=== PATIENT | female | born 1980 | race Caucasian/White ===

== ENCOUNTER 2023-05-08 11:26 | Inpatient (IN) ==
--- NOTE | 2023-04-14 11:51 | PAT Medication Instructions ---
Medication Instructions Date of Service April 14, 2023 Home Medications amitriptyline 50 mg tablet 50 mg PO HS carvedilol 6.25 mg tablet 6.25 mg PO BID cyclobenzaprine 10 mg tablet 10 mg PO TID PRN Pain desvenlafaxine succinate 50 mg tablet,extended release 24 hr (Pristiq) 50 mg PO QAM ergocalciferol (vitamin D2) 1,250 mcg (50,000 unit) capsule (Vitamin D2) 1,250 mcg PO WK ferrous sulfate 325 mg (65 mg iron) tablet (iron) 325 mg PO QPM hydroxyzine pamoate 25 mg capsule (Vistaril) 25 mg PO TID PRN Anxiety liothyronine 5 mcg tablet 10 mcg PO QAM lithium carbonate 150 mg capsule 150 mg PO QAM lithium carbonate 450 mg tablet,extended release 450 mg PO BID riboflavin (vitamin B2) 100 mg tablet (Vitamin B-2) 100 mg PO QAM sertraline 100 mg tablet 100 mg PO HS vitamin E 800 unit capsule 800 mg PO BID MEDICATION INSTRUCTIONS: STOP taking 2 weeks before surgery vitamin E 800 unit capsule 800 mg PO BID DO NOT take the morning of surgery ergocalciferol (vitamin D2) 1,250 mcg (50,000 unit) capsule (Vitamin D2) 1,250 mcg PO WK cyclobenzaprine 10 mg tablet 10 mg PO TID PRN Pain hydroxyzine pamoate 25 mg capsule (Vistaril) 25 mg PO TID PRN Anxiety riboflavin (vitamin B2) 100 mg tablet (Vitamin B-2) 100 mg PO QAM Take morning of surgery With a small sip of water, OTHERWISE NOTHING TO EAT OR DRINK AFTER MIDNIGHT: lithium carbonate 450 mg tablet,extended release 450 mg PO BID carvedilol 6.25 mg tablet 6.25 mg PO BID liothyronine 5 mcg tablet 10 mcg PO QAM lithium carbonate 150 mg capsule 150 mg PO QAM desvenlafaxine succinate 50 mg tablet,extended release 24 hr (Pristiq) 50 mg PO QAM Take evening before surgery lithium carbonate 450 mg tablet,extended release 450 mg PO BID carvedilol 6.25 mg tablet 6.25 mg PO BID ferrous sulfate 325 mg (65 mg iron) tablet (iron) 325 mg PO QPM cyclobenzaprine 10 mg tablet 10 mg PO TID PRN Pain (if needed) hydroxyzine pamoate 25 mg capsule (Vistaril) 25 mg PO TID PRN Anxiety (if needed) sertraline 100 mg tablet 100 mg PO HS Other Notes CHECK WITH PRESCRIBING PROVIDER FOR INSTRUCTIONS: amitriptyline 50 mg tablet 50 mg PO HS If you have any questions please call us at [phone] or [phone] or [phone] or [phone]
--- NOTE | 2023-04-24 11:10 | Anesthesiology Consultation ---
Date of Service April 24, 2023 Assessment & Plan (1) Encounter for pre-operative examination: Chart Review Chart Review: Acceptable Risk for Surgery (pending PCP clearance scheduled 04/27/23) and Patient seen in Pre Admission Testing - Awaiting PCP clearance 04/27/23 (Shannan Manning PA-C) - Check test AM DOS Per PAT appt on 04/24/23, patient returned from [place] 04/16/23. Pt is vaccin ated for Covid. Will leave to surgeon's discretion if preop Covid testing needed . Educated on importance of using Covid precautions one week prior to surgery Teaching & Discussion Pre-Anesthesia Teaching/Discussion Notes: Instructed NPO after midnight before surgery,except medications with 15 cc of water. Medication instructions provided according to the [facility] guidelines. History Surgery Operation Date: 05/08/23 07:45 Proposed Procedures p L4-L5 Decompression and Fusion, Spinal Cord Monitoring - Amauri Ramirez, DO Height/Weight Height: 5 ft 1.5 in Weight: 65.8 kg Allergies Allergy/AdvReac Type Severity Reaction Status Date / Time cefaclor [From [facility]] Allergy Intermediate Hives Verified 04/14/23 11:11 Medications Home Medications Medication Instructions Recorded Confirmed Last Taken amitriptyline 50 mg tablet 50 mg PO HS 04/14/23 04/14/23 Unknown carvedilol 6.25 mg tablet 6.25 mg PO BID 04/14/23 04/14/23 Unknown cyclobenzaprine 10 mg tablet 10 mg PO TID PRN Pain 04/14/23 04/14/23 Unknown desvenlafaxine succinate 50 mg 50 mg PO QAM 04/14/23 04/14/23 Unknown tablet,extended release 24 hr (Pristiq) ergocalciferol (vitamin D2) 1,250 1,250 mcg PO WK 04/14/23 04/14/23 Unknown mcg (50,000 unit) capsule (Vitamin D2) ferrous sulfate 325 mg (65 mg 325 mg PO QPM 04/14/23 04/14/23 Unknown iron) tablet (iron) hydroxyzine pamoate 25 mg capsule 25 mg PO TID PRN Anxiety 04/14/23 04/14/23 Unknown (Vistaril) liothyronine 5 mcg tablet 10 mcg PO QAM 04/14/23 04/14/23 Unknown lithium carbonate 150 mg capsule 150 mg PO QAM 04/14/23 04/14/23 Unknown lithium carbonate 450 mg 450 mg PO BID 04/14/23 04/14/23 Unknown tablet,extended release quetiapine 400 mg tablet (Seroquel) 400 mg PO QPM 04/14/23 04/14/23 Unknown riboflavin (vitamin B2) 100 mg 100 mg PO QAM 04/14/23 04/14/23 Unknown tablet (Vitamin B-2) sertraline 100 mg tablet 100 mg PO HS 04/14/23 04/14/23 Unknown vitamin E 800 unit capsule 800 mg PO BID 04/14/23 04/14/23 Unknown Past Medical History Medical History ADHD Stable Anxiety and depression Bipolar disorder stable Degenerative disc disease History of COVID-06 Mar 2022>resolved History of kidney stones no surgery required- no recent issues Hypertension Hypothyroidism Iron deficiency on supplement Migraine PTSD (post-traumatic stress disorder) Tardive dyskinesia stable with Vitamin E Exercise / Class Metabolic Activity II 4-5 Yardwork/Stairs/Walk up hill (one flight of stairs - no chest pain or SOB ) Past Family History Family History Other No family history of adverse response to anesthesia Past Surgical History Surgical History H/O foot surgery left (x 2) History of carpal tunnel release rt/left History of section x 3 History of colonoscopy History of decompression of ulnar nerve rt/left History of nasal surgery s/p nasal fracture [place] teeth removed Past Anesthesia History No Hx of Anesthesia Complications and No Family Hx of Anesthesia Complications History of PONV No Hx of PONV and No Hx of Motion Sickness Social History Smoking Status: Never smoker Hx Alcohol Use: Yes Alcohol type: beer, wine and hard liquor alcohol intake frequency: a few times a month substance use type: does not use Review of Systems Reflux- occ at night- relieved with Tums (feels from iron supplement) Blood transfusion s/p childbirth (years ago) Patient denies chest pain, shortness of breath, dyspnea on exertion, cough, wheezing, palpitations. No hx of seizures, stroke, RI, apnea/snoring. No hx of blood clots Physical Exam Vital Signs VITALS BP 117/78 P 67 TEMP 98.2 SP02 98% RESP 16 Constitutional no acute distress ENMT Mouth: no TMJ clicking Thyromental Distance: < 3.5 Finger Breadths (3.0) Mallampati Class: I (smaller airway) Cap to molar Neck + limited neck extension Respiratory normal respiratory effort; no respiratory distress Auscultation: lungs clear to auscultation bilaterally; no wheezes Cardiovascular Rate/Rhythm: regular rate and regular rhythm Heart Sounds: no murmur Vessels: no carotid bruit Musculoskeletal Spine: no pain with cervical ROM Extremities: extremities normal to inspection Psychiatric Orientation: alert Lab Results Anesthesia Preop Results Results Anesthesia Widget: WBC 6.98 K/ul (4.8-10.8) 04/24/23 Hgb 13.1 g/dl (12.0-16.0) 04/24/23 Hct 39.3 % (37.0-47.0) 04/24/23 Plt 240 K/uL (130-400) 04/24/23 Na 137 mmol/L (136-145) 04/24/23 K 4.6 mmol/L (3.5-5.1) 04/24/23 Cl 107 mmol/L (98-107) 04/24/23 CO2 28 mmol/L (21-32) 04/24/23 BUN 11 mg/dl (6-23) 04/24/23 Creat 0.86 mg/dl (0.6-1.2) 04/24/23 Glucose Level 86 mg/dl (70-99(Fasting)) 04/24/23 PT 10.3 Seconds (9.0-12.0) 04/24/23 PTT 24.1 Seconds (21.0-31.0) 04/24/23 INR 0.9 (0.9-1.1) 04/24/23 Urine Color Yellow 04/24/23 Urine Appearance Cloudy (Clear) A 04/24/23 Urine pH 8.0 (4.5-7.5) H 04/24/23 Urine Specific [place] 1.016 (1.000-1.030) 04/24/23 Urine Protein Negative (Negative) 04/24/23 Urine Glucose (UA) Negative (Negative) 04/24/23 Urine Ketones Negative (Negative) 04/24/23 Urine Blood Negative (Negative) 04/24/23 Urine Nitrite Positive (Negative) A 04/24/23 Urine Bilirubin Negative (Negative) 04/24/23 Urine Urobilinogen Negative (Negative) 04/24/23 Urine Leukocyte Esterase Trace (Negative) H 04/24/23 Urine WBC (Auto) 10-30 /hpf (0-5) H 04/24/23 Urine RBC (Auto) 0-4 /hpf (0-4) 04/24/23 Urine Hyaline Casts (Auto) 1-5 /lpf (0-5) 04/24/23 Urine Epithelial Cells (Auto) >30 /lpf (0-5) H 04/24/23 Urine Bacteria (Auto) 4+ (Negative) H 04/24/23 Blood Type O Negative 04/24/23 Antibody Screen NEGATIVE 04/24/23 Testing Laboratory Results Surgeon's office informed of abnormal UA results 04/24/23= URINE CULTURE: E coli >100,00 CFU/ml Electrocardiogram Date: 04/24/23 Findings: + NSR @ (63bpm ) Normal EKG per cardio Chest X-Ray Date: 04/24/23 Findings: + NAD COVID-19 Risk Screen Screening Information COVID-19 Screen Date: 04/24/23 Exposure 21 Days Family/Household +COVID Last 21 Days: No Exposure 10 Days Any COVID Exposure Last 10 Days: No Symptoms Last 10 Days Experienced COVID Sx Last 10 Days: No + COVID 0-90 Days COVID + in Last 0-90 Days: No Risk Plan COVID Risk Plan: No Risk Identified Patient Education COVID Preop Screening Education Complete: Yes
--- NOTE | 2023-05-08 11:18 | History & Physical Bridge Note ---
Date of Service May 08, 2023 History & Physical Bridge Note I have examined the patient, reviewed the History & Physical and in the interval since the performance of the History & Physical I have noted the following changes of clinical significance: no changes noted
--- NOTE | 2023-05-08 11:19 | History & Physical Report ---
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 After failing course of nonoperative care she is here for surgical intervention. Allergies Allergy/AdvReac Type Severity Reaction Status Date / Time cefaclor [From [facility]] Allergy Intermediate Hives Verified 04/14/23 11:11 Home Medications Medication Instructions Recorded Confirmed Type amitriptyline 50 mg tablet 50 mg PO HS 04/14/23 04/14/23 History carvedilol 6.25 mg tablet 6.25 mg PO BID 04/14/23 04/14/23 History cyclobenzaprine 10 mg tablet 10 mg PO TID PRN Pain 04/14/23 04/14/23 History desvenlafaxine succinate 50 mg 50 mg PO QAM 04/14/23 04/14/23 History tablet,extended release 24 hr (Pristiq) ergocalciferol (vitamin D2) 1,250 1,250 mcg PO WK 04/14/23 04/14/23 History mcg (50,000 unit) capsule (Vitamin D2) ferrous sulfate 325 mg (65 mg 325 mg PO QPM 04/14/23 04/14/23 History iron) tablet (iron) hydroxyzine pamoate 25 mg capsule 25 mg PO TID PRN Anxiety 04/14/23 04/14/23 History (Vistaril) liothyronine 5 mcg tablet 10 mcg PO QAM 04/14/23 04/14/23 History lithium carbonate 150 mg capsule 150 mg PO QAM 04/14/23 04/14/23 History lithium carbonate 450 mg 450 mg PO BID 04/14/23 04/14/23 History tablet,extended release quetiapine 400 mg tablet (Seroquel) 400 mg PO QPM 04/14/23 04/14/23 History riboflavin (vitamin B2) 100 mg 100 mg PO QAM 04/14/23 04/14/23 History tablet (Vitamin B-2) sertraline 100 mg tablet 100 mg PO HS 04/14/23 04/14/23 History vitamin E 800 unit capsule 800 mg PO BID 04/14/23 04/14/23 History Past Med/Surg History Medical History ADHD Stable Anxiety and depression Bipolar disorder stable Degenerative disc disease History of COVID-06 Mar 2022>resolved History of kidney stones no surgery required- no recent issues Hypertension Hypothyroidism Iron deficiency on supplement Migraine PTSD (post-traumatic stress disorder) Tardive dyskinesia stable with Vitamin E Surgical History H/O foot surgery left (x 2) History of carpal tunnel release rt/left History of section x 3 History of colonoscopy History of decompression of ulnar nerve rt/left History of nasal surgery s/p nasal fracture [place] teeth removed Family History Other No family history of adverse response to anesthesia Social History Smoking Status: Never smoker Second Hand Exposure: No; Hx Alcohol Use: Yes Alcohol type: beer, wine and hard liquor Preferred Language: Georgian 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
[~2023-05-08 11:26] MED LIST: ACETAMINOPHEN 500 MG TAB PO SCH; CLINDAMYCIN/D5W 900 MG/50 ML BAG IV SCH; CeleBREX 200 MG CAP PO SCH; GABAPENTIN 900 MG DOSE PO SCH; LR 15ML/HR IV SCH
[2023-05-08] MEDS ORDERED: BUPIVACAINE/EPINEPHRINE 0.25% 1:200,000 30 ML VIAL ONE (11:30)
[2023-05-08] MEDS ORDERED: ceFAZolin 330 MG/ML 1 GM VIAL ONE (11:30)
[2023-05-08] MEDS ORDERED: DEXAMETHASONE SOD INJ 4 MG/ML VIAL ONE (11:37)
[2023-05-08] MEDS ORDERED: MIDAZOLAM HCL 1 MG/ML 2ML VIAL ONE (11:37)
[2023-05-08] MEDS ORDERED: ONDANSETRON INJ 2 MG/ML 2 ML VIAL ONE (11:37)
[2023-05-08] MEDS ORDERED: fentaNYL citrate PF 100 MCG/2 ML VIAL ONE (11:37)
[2023-05-08] MEDS ORDERED: LIDOCAINE 2% 2 ML VIAL/AMP(20MG/ML) INFIL ONE (11:37)
[2023-05-08] MEDS ORDERED: PROPOFOL IV EMULSION 10 MG/ML 20 ML VIAL IV ONE (11:37)
[2023-05-08] MEDS ORDERED: ePHEDrine sulfate 50 MG/ML AMP IV PRN (12:22)
[2023-05-08] MEDS ORDERED: ONDANSETRON INJ 2 MG/ML 2 ML VIAL IV PRN ×2 (12:22→15:36)
[2023-05-08] MEDS ORDERED: ATROPINE SULFATE 0.1 MG/ML 10ML SYR IV PRN (12:22)
[2023-05-08] MEDS ORDERED: ROCURONIUM BROMIDE 10 MG/ML 5 ML VIAL IV ONE (12:53)
[2023-05-08] MEDS ORDERED: SUGAMMADEX SODIUM 200 MG/2 ML VIAL IV ONE (12:53)
[2023-05-08] MEDS ORDERED: FLOSEAL HEMOSTATIC MATRIX 10ML TOP ONE (13:04)
--- NOTE | 2023-05-08 13:59 | Operative Report ---
Post Operative Report Pre & Post Diagnosis Operation Date: 05/08/23 12:55 Pre-Op Diagnosis: Lumbar spinal stenosis Lumbar spondylolisthesis L4-L5 Post-Op Diagnosis: Same I identified the patient and participated in the time-out.: Yes Procedure Operation Date: 05/08/23 12:55 Actual Procedures 1. Lumbar decompression bilaterally facetectomies and foraminotomies L3-L4 L4-5 #2 posterior spinal fusion L4-5 per #3 placed posterior instrumentation L4-5. #4 interbody fusion L4-5. #5 placement Spira 13 x 26 mm at L4-5 per #6 placement locally harvested morselized autograft in the posterior gutters. #7 placement of I factor combined with V toss in the interbody space and posterior gutters. Surgeon Amauri Ramirez, Laser/Electro Optics Technician Wayne Bowles Estimated Blood Loss 50 Findings Consistent with Post-Op Diagnosis Specimens none Indications This is a 42-year-old female who presents with chronic persistent back and leg pain after failing course of nonoperative care she is here for surgical intervention. Description of Procedure Patient was met with identified informed consent obtained. Patient was then taken to the operative suite underwent a patient placed in a prone position the Harper table top Nilay frame. All bony promises well-padded eyes inspected to ensure no external pressure placed upon the. This point lumbar spine was prepped and draped in a sterile fashion. Sharp dissection with the assistance of Bovie cautery to form down to and exposing the lamina transverse processes of L4-5. From a caudal cephalad fashion complete laminectomy of L4 partial and active L3 was performed including bilateral medial facetectomies and foraminotomies addressing severe spinal stenosis and neural compression. Pedicle screws were then placed in L4-L5 bilaterally with assistance of fluoroscopy and appropriate sized rosie placed. By way of transforaminal approach and left complete discectomy L4-5 was performed endplates guided to subcortically bone and a 13 x 26 mm Spira cage filled with I factor tapped in position. The rods then compressed locked into final position bilaterally. The transverse processes of L4-5 burred to subcortical bleeding bone. I factor amount of the test and locally harvested morselized allograft was then placed in the posterior gutters. 15 round LYUDMILA drain inserted. The incision was then closed with 1 Vicryl to fascia 2-0 Vicryl subcutaneously and 4 Monocryl for final skin closure. Steri-Strips sterile dressing placed. Patient waken taken to PACU stable condition. Please note spinal cord monitoring visualized at the procedure no changes noted. Lastly Wayne Bowles was present at the entire surgeon while the patient positioning complex portion of the surgery and final skin closure. I attest to the content of the Intraoperative Record and any orders documented therein. Any exceptions are noted below.
[2023-05-08] MEDS: fentaNYL citrate PF 100 MCG/2 ML VIAL IV PRN ×4 (14:35→14:50)
--- NOTE | 2023-05-08 14:46 | Fluoroscopy Report ---
INTRAOPERATIVE RADIOGRAPHS CLINICAL HISTORY: L4-L5 spinal fusion. Fluoro time: 21 seconds Ka,r: 16.25 mGy FINDINGS: 2 spot fluoroscopic views of the lumbar spine are presented. There has been discectomy at L 4-L5 with laminectomy and posterior fusion at this level. Interpedicular screws are in place. The ort hopedic hardware appears intact. IMPRESSION: Intraoperative images from lumbar spinal fusion surgery as above. Electronically signed by: Cruzito Sebastian M.D. 05/08/2023 2:45 PM
--- NOTE | 2023-05-08 15:00 | Anesthesiology Progress Note ---
Date of Service May 08, 2023 Anesthesia Post Procedure Vital Signs Vital Signs: Temp Pulse Resp BP BP Pulse Ox O2 Del Method 05/08/23 14:55 98.4 F 74 15 99/63 L 98 Nasal Cannula 05/08/23 14:45 68 15 110/72 96 Nasal Cannula 05/08/23 14:35 72 18 119/82 96 Room Air 05/08/23 14:25 74 20 118/75 100 Oxymask 05/08/23 14:16 96.8 F L 76 16 121/82 98 Oxymask 05/08/23 12:01 98.6 F 65 20 132/85 96 Room Air O2 Flow Rate 05/08/23 14:55 3 05/08/23 14:45 3 05/08/23 14:35 05/08/23 14:25 6 05/08/23 14:16 6 05/08/23 12:01 Pain Intensity Back: Pain Intensity: 5 Transfer of Care Handoff Completed per policy Notes Mental Status: alert / awake / arousable and participated in evaluation Patient Amnestic to Procedure: Yes Nausea / Vomiting: adequately controlled Pain: adequately controlled Airway Patency, RR, SpO2: stable & adequate BP & HR: stable & adequate Hydration State: stable & adequate Anesthetic Complications: no major complications apparent and Pt Satisfied with anesthetic care
[2023-05-08] MEDS ORDERED: diphenhydrAMINE Capsule 25 MG CAP PO PRN (15:36)
[2023-05-08] MEDS ORDERED: LORazepam 2 MG/1 ML VIAL IV PRN (15:36)
[2023-05-08] MEDS ORDERED: HYDROmorphone INJ 0.5 MG/0.5 ML SYR IV PRN (15:36)
[2023-05-08] MEDS ORDERED: FAMOTIDINE 20 MG TAB PO PRN (15:36)
[2023-05-08] MEDS ORDERED: MAGNESIUM HYDROXIDE SUSP 30 ML UDC PO PRN (15:36)
[2023-05-08] MEDS ORDERED: ALUMINUM/MAGNESIUM SUSP 30 ML UDC PO PRN (15:36)
[2023-05-08] MEDS ORDERED: LORazepam 0.5 MG TAB PO PRN (15:36)
[2023-05-08] MEDS ORDERED: METOCLOPRAMIDE HCL INJ 5 MG/ML 2 ML VIAL IV PRN (15:36)
[2023-05-08] MEDS ORDERED: HYDROmorphone INJ 1 MG/ML SYRINGE IV PRN (15:36)
[2023-05-08] MEDS ORDERED: bisacodyL 10 MG SUPP PR PRN (15:36)
[2023-05-08] MEDS ORDERED: DO NOT ADMINISTER FLU VACCINE PRN (15:36)
[2023-05-08] MEDS ORDERED: NALOXONE HCL 0.4 MG/1 ML VIAL/CARP IV PRN (15:36)
[2023-05-08] MEDS ORDERED: ONDANSETRON 4 MG OD TAB PO PRN (15:36)
[2023-05-08] MEDS ORDERED: DO NOT ADMINISTER PNEUMOCOCCAL VACCINE PRN (15:36)
[2023-05-08] MEDS ORDERED: traMADol HCL 50 MG TABLET PO PRN (15:36)
[2023-05-08] MEDS ORDERED: SOD PHOSPHATE/SOD BIPHOSPHATE ENEMA 132 ML BTL PR PRN (15:36)
[2023-05-08] MEDS ORDERED: PROMETHAZINE HCL 12.5 MG in SODIUM CHLORIDE 0.9% 50 ML IV PRN (15:36)
[2023-05-08] MEDS ORDERED: hydrOXYzine HCl 25 MG TAB PO PRN ×2 (15:36)
[2023-05-08] MEDS: LACTATED RINGER'S 1,000 ML IV SCH (16:11)
[2023-05-08] MEDS ORDERED: ACETAMINOPHEN 500 MG TAB PO PRN (20:00)
[2023-05-08] MEDS ORDERED: ACETAMINOPHEN 1,000 MG/100 ML VIAL IV PRN (20:00)
[2023-05-08] MEDS: CLINDAMYCIN/D5W 600 MG/50 ML BAG IV SCH (20:44)
[2023-05-08] MEDS: AMITRIPTYLINE HCL 50 MG TAB PO SCH (21:33)
[2023-05-08] MEDS: DOCUSATE SODIUM/SENNA 50/8.6MG TAB PO SCH (21:33)
[2023-05-08] MEDS: carvediloL 6.25 MG TAB PO SCH (21:33)
[2023-05-08] MEDS: LITHIUM CARBONATE 450 MG TABCR PO SCH (21:33)
[2023-05-08] MEDS: QUEtiapine FUMARATE 200 MG TAB PO SCH (21:34)
[2023-05-08] MEDS: FERROUS SULFATE 325 MG TAB PO SCH (21:34)
[2023-05-08] MEDS: oxyCODONE HCL IR 5 MG TAB (IMMEDIATE RELEASE) PO PRN (21:34)
[2023-05-08] MEDS: TOCOPHERYL, DL-ALPHA 400 UNITS 180 MG CAP PO SCH (21:34)
[2023-05-08] MEDS: SERTRALINE HCL 100 MG TABLET PO SCH (21:34)
[2023-05-09] MEDS: LACTATED RINGER'S 1,000 ML IV SCH (01:41)
[2023-05-09] MEDS: CLINDAMYCIN/D5W 600 MG/50 ML BAG IV SCH (04:59)
[2023-05-09] MEDS: oxyCODONE HCL IR 5 MG TAB (IMMEDIATE RELEASE) PO PRN ×3 (06:21→21:39)
[2023-05-09] MEDS: POLYETHYLENE (MIRALAX) 17 GM PACK PO SCH ×3 (06:21→18:29)
[2023-05-09] MEDS: LIOTHYRONINE SODIUM 5 MCG TAB PO SCH (06:22)
[2023-05-09 07:27] LABS: Basophils # (auto) 0.02 K/uL (0-0.2); Basophils % (auto) 0.2 %; Eosinophils # (auto) 0.03 K/uL (0-0.50); Eosinophils % (auto) 0.3 %; Hematocrit (blood only) 32.9 % (37.0-47.0); Immature Granulocytes # (auto) 0.06 K/uL (0.01-0.20); Immature Granulocytes % (auto) 0.6 %; Lymphocytes # (auto) 1.45 K/uL (1.2-3.4); Lymphocytes % (auto) 14.2 %; Mean Corpuscular Hemoglobin 29.8 pg (25.0-34.0); Mean Corpuscular Hgb Conc 33.4 g/dL (32.0-36.0); Mean Corpuscular Volume 89.2 fL (80.0-100.0); Mean Platelet Volume 10.2 fL (9.4-12.4); Monocytes # (auto) 0.82 K/uL (0.11-0.59); Neutrophils # (auto) 7.81 K/uL (1.40-6.50); Neutrophils % (auto) 76.7 %; Platelet Count 218 K/uL (130-400); RDW Coefficient of Variation 12.1 % (11.5-14.5); RDW Standard Deviation 39.2 fL (36.4-46.3); Red Blood Count 3.69 M/uL (4.20-5.40); White Blood Count 10.19 K/ul (4.8-10.8)
--- NOTE | 2023-05-09 07:46 | Orthopedic Progress Note ---
Date of Service May 09, 2023 Assessment & Plan (1) Lumbar disc herniation with radiculopathy: Plan: Patient is doing well postop day #1. We will continue with GI DVT prophylaxis as well as pain control. She will get up and ambulate throughout the day. If she continues to progress we will consider home discharge tomorrow. Admission and Anticipated Discharge Date Admission Date: May 08, 2023 Subjective Patient seen bedside in room 351. She states that she is doing well today. She has some soreness in the back with the pain medication is helping. She has no leg pain at this point. She did well overnight. She is tolerating p.o. She has no new complaints. She denies any other numbness, tingling, paresthesias Physical Exam Physical Exam: On exam she is alert and oriented. Her lower extremity motor exam reveals no focal atrophy her strength and sensation are both intact. Her calves are supple nontender abdomen supple nontender her dressing is clean dry and intact her LYUDMILA drain is in place and holding suction. Visual zaldivar are grossly intact cardiovascular exam reveals no gross abnormalities Results & Data Vital Signs (Past 12 Hours) Vital Signs Temp Pulse Resp BP BP Pulse Ox O2 Del Method 05/09/23 05:03 36.5 C 73 16 97/67 L 97 Room Air 05/09/23 01:00 36.4 C L 77 18 93/61 L 97 Room Air 05/08/23 21:29 36.7 C 92 H 18 112/74 96 Room Air
[2023-05-09] MEDS: LITHIUM CARBONATE 450 MG TABCR PO SCH ×2 (08:38→21:39)
[2023-05-09] MEDS: LITHIUM CARBONATE 300 MG TAB PO SCH (08:38)
[2023-05-09] MEDS: TOCOPHERYL, DL-ALPHA 400 UNITS 180 MG CAP PO SCH ×2 (08:38→21:39)
[2023-05-09] MEDS: dexAMETHasone 6 MG in SYRINGE 0 ML IV SCH (08:41)
[2023-05-09] MEDS: carvediloL 6.25 MG TAB PO SCH ×2 (08:55→21:39)
[2023-05-09] MEDS ORDERED: NON-FORMULARY MEDICATION (Riboflavin (Vitamin B2) [Vitamin B-2] 100 mg Tablet) PO SCH (09:00)
[2023-05-09 09:59] LABS: BUN Creatinine Ratio 16.7 (10-20); Calcium 9.1 mg/dl (8.6-10.3); Creatinine Clr Calc Pharmacy 64.8 ml/min; Est GFR (African American) 79.1 ml/min; Est GFR (Non-African American) 68.3 ml/min; Potassium 3.9 mmol/L (3.5-5.1)
--- NOTE | 2023-05-09 15:52 | Hospitalist Consultation ---
Date of Consultation May 09, 2023 Assessment & Plan (1) Lumbar disc herniation with radiculopathy: Patient is a 42 yo F who was admitted for a planned lumbar decompression procedure with Dr. Ramirez on 05/08/23 - doing well on POD 1 - pain control per ortho - anticipate discharge on 05/10/23 - no further recommendations (2) Bipolar disorder: - history of, not current in acute sanjiv - continue home medication regimen which consists of Severy, Seroquel, Pristiq, and sertraline (3) Hypertension: - chronic - continue home dose of coreg (4) Hypothyroidism: - continue home dose liothyronine Hospital team will sign off at this time. If medical problems arise, please feel free to re-consult medicine team History of Present Illness Reason for Consultation: medical management Requesting Physician: Dr. Ramirez Attending Physician: Angelique Mahcuca MD History of Present Illness Ms. Peters is a 42 yo female who was admitted to [facility] for a lumbar decompression procedure with Dr. Ramirez on 05/08/23. The procedure went well without any known complications. Hospitalist team was consulted for medical management. Patient says she is doing well on post op day 1. She hopes to be discharged home tomorrow, 05/10/23. She has not acute concerns at this time. Her pain is well controlled. She does have a history of bipolar disorder for which she takes lithium, Seroquel, sertraline and Pristiq The Pristiq is not on hospital formulary but she did bring her own pills with her today. Allergies Allergy/AdvReac Type Severity Reaction Status Date / Time cefaclor [From [facility]] Allergy Intermediate Hives Verified 05/08/23 11:55 Home Medications Medication Instructions Recorded Confirmed Type amitriptyline 50 mg tablet 50 mg PO HS 04/14/23 05/08/23 History carvedilol 6.25 mg tablet 6.25 mg PO BID 04/14/23 05/08/23 History cyclobenzaprine 10 mg tablet 10 mg PO TID PRN Pain 04/14/23 05/08/23 History desvenlafaxine succinate 50 mg 50 mg PO QAM 04/14/23 05/08/23 History tablet,extended release 24 hr (Pristiq) ergocalciferol (vitamin D2) 1,250 1,250 mcg PO WK 04/14/23 05/08/23 History mcg (50,000 unit) capsule (Vitamin D2) ferrous sulfate 325 mg (65 mg 325 mg PO QPM 04/14/23 05/08/23 History iron) tablet (iron) hydroxyzine pamoate 25 mg capsule 25 mg PO TID PRN Anxiety 04/14/23 05/08/23 History (Vistaril) liothyronine 5 mcg tablet (Cytomel) 10 mcg PO QAM 04/14/23 05/08/23 History lithium carbonate 150 mg capsule 150 mg PO QAM 04/14/23 05/08/23 History lithium carbonate 450 mg 450 mg PO BID 04/14/23 05/08/23 History tablet,extended release quetiapine 400 mg tablet (Seroquel) 400 mg PO QPM 04/14/23 05/08/23 History riboflavin (vitamin B2) 100 mg 100 mg PO QAM 04/14/23 05/08/23 History tablet (Vitamin B-2) sertraline 100 mg tablet 100 mg PO HS 04/14/23 05/08/23 History vitamin E 800 unit capsule 800 mg PO BID 04/14/23 05/08/23 History Patient History Medical History (Updated 05/09/23 @ 15:56 by Angelique Machuca MD) ADHD Stable Anxiety and depression Bipolar disorder stable Degenerative disc disease History of COVID-06 Mar 2022>resolved History of kidney stones no surgery required- no recent issues Hypertension Hypothyroidism Iron deficiency on supplement Migraine PTSD (post-traumatic stress disorder) Tardive dyskinesia stable with Vitamin E Surgical History H/O foot surgery left (x 2) History of carpal tunnel release rt/left History of section x 3 History of colonoscopy History of decompression of ulnar nerve rt/left History of nasal surgery s/p nasal fracture [place] teeth removed Family History Other No family history of adverse response to anesthesia Social History Smoking Status: Never smoker Second Hand Exposure: No; Hx Alcohol Use: Yes Alcohol type: beer, wine and hard liquor Preferred Language: Dutch 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 Beliefs That Will Affect Care: None Current Living Situation: Family Feels Safe at Home: Yes Safety Concerns: Feels Safe At This Time Assistive Devices: Contacts Review of Systems Review of Systems: All systems reviewed & are unremarkable except as noted in HPI & below Physical Exam Constitutional: WD/WN, vitals as above comfortable Eyes: PERRL, conjunctivae normal, anicteric sclerae ENMT: external ear and nose normal, oropharynx normal Neck: trachea midline Respiratory: normal respiratory effort, lungs clear to auscultation Cardiovascular: RRR, no murmur, no edema Musculoskeletal: Head/Neck/Chest: normocephalic and head atraumatic Skin: no rashes, warm and dry Neurologic: moves all extremities Psychiatric: A+Ox3, euthymic affect Results & Data Results & Data Vital Signs (Past 12 Hours) Vital Signs Temp Pulse Resp BP BP Pulse Ox O2 Del Method 05/09/23 11:45 36.8 C 81 16 107/73 95 Room Air 05/09/23 08:54 75 108/68 05/09/23 07:56 36.3 C L 75 16 108/74 98 Room Air 05/09/23 05:03 36.5 C 73 16 97/67 L 97 Room Air PG Care Time/CCT Total # of Minutes Spent Total Time Spent with Patient: Total time spent is greater than 50% in coordination of care (as documented) at patient's floor/unit and/or counseling patient: C[place] [address] IN/OBS CONSULT LVL 2,35M Patient Type Established Diagnoses Lumbar disc herniation with radiculopathy M51.16 Bipolar disorder F31.9 Hypertension I10 Hypothyroidism E03.9
[2023-05-09] MEDS: DOCUSATE SODIUM/SENNA 50/8.6MG TAB PO SCH (21:39)
[2023-05-09] MEDS: AMITRIPTYLINE HCL 50 MG TAB PO SCH (21:39)
[2023-05-09] MEDS: FERROUS SULFATE 325 MG TAB PO SCH (21:39)
[2023-05-09] MEDS: SERTRALINE HCL 100 MG TABLET PO SCH (21:39)
[2023-05-09] MEDS: QUEtiapine FUMARATE 200 MG TAB PO SCH (21:40)
[2023-05-10] MEDS: POLYETHYLENE (MIRALAX) 17 GM PACK PO SCH ×2 (00:52→06:28)
[2023-05-10] MEDS: oxyCODONE HCL IR 5 MG TAB (IMMEDIATE RELEASE) PO PRN ×2 (06:28→10:28)
[2023-05-10] MEDS: LIOTHYRONINE SODIUM 5 MCG TAB PO SCH (06:28)
--- NOTE | 2023-05-10 07:34 | Discharge Summary ---
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 After failing course of nonoperative care she is here for surgical intervention. Discharge Data Consultations 05/08/23 15:36 Consult Hospitalist Routine Procedures Performed Operation Date: 05/08/23 12:55 Actual Procedures p L4-L5 Decompression and Fusion, Spinal Cord Monitoring - Amauri Ramirez, Hospital Course (1) Lumbar disc herniation with radiculopathy: Patient is a pleasant 42-year-old female with history physical examination radiographic images consistent with the above-mentioned diagnosis. This reason she was brought to the operating room on 05/08/2023 and undergone lumbar decompression and fusion at L4-[address] Ramirez. She left the operating room with a LYUDMILA drain in place and was transferred to PACU in stable condition. She was seen by physical therapy postop day #1. She done well throughout her hospital course her calves remained supple nontender abdomen remained supple nontender. On postop day 2 she is deemed safe for home discharge. Her discharge instructions were to change her dressing once daily till there is no drainage from there is no drainage may shower. She should not drive until her postop visit approximately 2 weeks. She should anything heavier than 5 to 7 hu nds and should not perform any full bending at the waist. For follow-up. She is to see us in the office in 2 weeks. She was to come in sooner if she develops any increased drainage from the incision worsening leg pain redness around the incision fevers or chills.
[2023-05-10] MEDS: dexAMETHasone 6 MG in SYRINGE 0 ML IV SCH (08:31)
[2023-05-10] MEDS: LITHIUM CARBONATE 300 MG TAB PO SCH (08:31)
[2023-05-10] MEDS: LITHIUM CARBONATE 450 MG TABCR PO SCH (08:32)
[2023-05-10] MEDS: TOCOPHERYL, DL-ALPHA 400 UNITS 180 MG CAP PO SCH (08:32)
[2023-05-10] MEDS: carvediloL 6.25 MG TAB PO SCH (08:40)
[2023-05-10] MEDS ORDERED: ERGOCALCIFEROL 50,000 UNITS 1250 MCG CAP PO SCH (09:00)
--- NOTE | 2023-05-13 08:37 | Coding Query ---
CODING QUERY To promote full compliance with coding requirements relating to patient care, provider participation is requested in all cases of medical office representative uncertainty. Please assist us with the question(s) below: Coding Question(s): Lumbar Disc Herniation with radiculopathy is documented. 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 Please specify below, in your clinical opinion, regarding Lumbar Disc Herniation: (x ) Lumbar Disc Herniation likely due to Trauma ( ) Lumbar Disc Herniation Not likely due to Trauma ( ) Lumbar Disc Herniation, Other. Please Specify Physician's Response(s): Thank you China Hazel Principal Diagnosis: "that condition established after study, to be chiefly responsible for occasioning the admission of the patient to the hospital for care." Co-Existing Principal Diagnosis: "when two or more diagnoses equally meet the criteria for principal diagnosis as determined by the circumstances of admission, diagnostic work up, and/or therapy provided, and the Alphabetic Index, Tabular List, or another coding guideline does not provide sequencing direction, any one of the diagnoses may be sequenced first." "When the physician has documented what appears to be a current diagnosis in the body of the record, but has not included the diagnosis in the final diagnostic statement, the physician should be asked whether the diagnosis should be added." (Source Coding [facility] 2 QTR90. p3-4) ARVIND
== END 2023-05-10 12:26 | disposition home or self-care (01) | DRG 455 ==
LOC: ASU 11:26 → SUATTDRO 14:03 → 3W 14:03